=== PATIENT | female | born 1975 | race African-American/Black ===

== ENCOUNTER 2023-06-25 09:26 | Outpatient (CLI) | payer OTHER, MEDICAID | END 2023-06-25 09:27 | disposition home or self-care (01) | LOC: BICULT 09:26 | PROVIDERS: ATTEND Internal Medicine Gastroenterology | DX: Z12.11 Encounter for screening for malignant neoplasm of colon (principal); K21.9 Gastro-esophageal reflux disease without esophagitis; R07.9 Chest pain, unspecified; R19.06 Epigastric swelling, mass or lump; D64.9 Anemia, unspecified; K76.9 Liver disease, unspecified; Z98.2 Presence of cerebrospinal fluid drainage device | CPT/HCPCS: 76705 ==

== ENCOUNTER 2023-10-06 08:09 | Outpatient (CLI) | payer OTHER, MEDICAID ==
[2023-10-06] MEDS ORDERED: Barium Sulfate 96% 176 GM BOT (xray ONLY) ONE (08:11)
[2023-10-06] MEDS ORDERED: E-Z-HD 98% W/W 340GM BOT (x-ray ONLY) ONE (08:11)
== END 2023-10-06 08:10 | disposition home or self-care (01) ==
LOC: RAD 08:09
PROVIDERS: ATTEND Internal Medicine Gastroenterology
DX: K26.9 Duodenal ulcer, unspecified as acute or chronic, without hemorrhage or perforation (principal); K31.1 Adult hypertrophic pyloric stenosis; R68.81 Early satiety; R11.10 Vomiting, unspecified
CPT/HCPCS: 74246